=== PATIENT | female | born 1980 | race Caucasian/White ===

== ENCOUNTER 2017-10-12 09:43 | Emergency (ER) | payer SELFPAY ==
[2017-10-12 09:51] VITALS: BP 139/81; PULSE 119; RESP 18; TEMP 100.4; O2SAT 97
[2017-10-12 09:52] VITALS: BMI 24.9
--- NOTE | 2017-10-12 10:53 | ED PDOC ---
HPI: CCC, URI, Sore Throat Time Seen by Provider: 10/12/17 09:57 Chief Complaint (Nursing): Flu-like Symptoms Chief Complaint (Provider): Flu like symptoms History Per: Patient Additional Complaint(s): 37 yo female, no PMH, presents to ED with complaints of sudden onset of nasal congestion, cough, nausea and tactile fever last night. Pt took 2 aspirin at 0830 this am for relief of body aches and fever. No flu shot this year Past Medical History Reviewed: Nursing Documentation, Vital Signs Vital Signs: Last Vital Signs Temp 100.4 F H 10/12/17 11:10 Pulse 119 H 10/12/17 09:50 Resp 18 10/12/17 09:50 BP 139/81 10/12/17 09:50 Pulse Ox 97 10/12/17 10:52 - Medical History PMH: Bronchitis - Family History Family History: States: No Known Family Hx - Living Arrangements Living Arrangements: With Family - Social History Current smoker - smoking cessation education provided: No Alcohol: Social Drugs: Denies - Home Medications Home Medications: Ambulatory Orders Medication Instructions Recorded Cephalexin [Keflex] 500 mg PO QID #48 cap 05/03/14 Ibuprofen [Motrin] 600 mg PO Q6 #20 tab 10/12/17 Promethazine HCl/Codeine 5 ml PO HS #80 ml 10/12/17 [Prometh-Codein 6.25-10 mg/5 ml] - Allergies Allergies/Adverse Reactions: Allergies Allergy/AdvReac Type Severity Reaction Status Date / Time No Known Allergies Allergy Verified 05/03/14 15:55 Review of Systems ROS Statement: Except As Marked, All Systems Reviewed And Found Negative Constitutional: Positive for: Fever ENT: Positive for: Nose Congestion Respiratory: Positive for: Cough Physical Exam - Reviewed Nursing Documentation Reviewed: Yes Vital Signs Reviewed: Yes - Physical Exam Appears: Positive for: Well, Non-toxic, No Acute Distress Head Exam: Positive for: ATRAUMATIC, NORMAL INSPECTION, NORMOCEPHALIC Skin: Positive for: Normal Color, Warm, DRY Eye Exam: Positive for: EOMI, Normal appearance, PERRL ENT: Positive for: Normal ENT Inspection Neck: Positive for: Normal, Painless ROM Cardiovascular/Chest: Positive for: Regular Rate, Rhythm Respiratory: Positive for: CNT, Normal Breath Sounds Gastrointestinal/Abdominal: Positive for: Normal Exam, Bowel Sounds, Soft Back: Positive for: Normal Inspection Extremity: Positive for: Normal ROM Neurologic/Psych: Positive for: Alert, Oriented - Laboratory Results Result Diagrams: 10/12/17 11:10 10/12/17 11:10 - ECG O2 Sat by Pulse Oximetry: 97 Medical Decision Making Medical Decision Making: Pt medicated with Tylenol and Zofran Diagnostics ordered CXR: NAD, as read by [facility] Labs resulted and reviewed with Pt who demonstrated full understanding and reports feeling improved on r-eval Temp 99.3 F Disposition - Clinical Impression Clinical Impression: Influenza-like symptoms, Anemia - Disposition Disposition: Routine/Home Disposition Time: 11:00 Condition: STABLE Prescriptions: Ibuprofen [Motrin] 600 mg PO Q6 #20 tab Promethazine HCl/Codeine [Prometh-Codein 6.25-10 mg/5 ml] 5 ml PO HS #80 ml Instructions: Viral Syndrome (ED) Forms: [employer] (Thai)
--- NOTE | 2017-10-12 11:30 | RAD ---
HISTORY: fever and cough COMPARISON: 08/29/2012 TECHNIQUE: Chest PA and lateral FINDINGS: LUNGS: No active pulmonary disease. PLEURA: No significant pleural effusion identified. No pneumothorax apparent. CARDIOVASCULAR: Normal. OSSEOUS STRUCTURES: No significant abnormalities. VISUALIZED UPPER ABDOMEN: Normal. OTHER FINDINGS: None. IMPRESSION: No active disease.
[2017-10-12 11:32] LABS: VENOUS BLOOD GAS BASE EXCESS 3.4 mmol/L (0.0-2.0); VENOUS BLOOD GAS PCO2 44 mmHg (40-60); VENOUS BLOOD GAS PO2 17 mm/Hg (30-55); VENOUS BLOOD PH 7.42 (7.32-7.43)
[2017-10-12 11:38] LABS: ALB/GLOB RATIO 1.3 (1.0-2.1); ALBUMIN 4.5 g/dL (3.5-5.0); ALT/SGPT 30 U/L (9-52); AST/SGOT 30 U/L (14-36); BLOOD UREA NITROGEN 10 mg/dl (7-17); CALCIUM 8.7 mg/dL (8.4-10.2); GFR AFRICAN-AMERICAN > 60; GFR NON-AFRICAN AMERICAN > 60
[2017-10-12 11:42] LABS: BASO % 0.3 % (0.0-2.0); EOS # 0.1 K/uL (0.0-0.7); EOS % 0.6 % (0.0-4.0); HEMOGLOBIN 9.3 g/dL (12.0-16.0); LYMPH # 0.6 K/uL (1.0-4.3); LYMPH % 7.1 % (20.0-40.0); MEAN CELL VOLUME 69.1 fl (81.0-99.0); MEAN CORPUSCULAR HEMOGLOBIN 20.9 pg (27.0-31.0); MEAN CORPUSCULAR HGB CONC 30.2 g/dL (33.0-37.0); MEAN PLATELET VOLUME 7.6 fl (7.2-11.7); MONO # 0.5 K/uL (0.0-0.8); NEUT # 7.7 K/uL (1.8-7.0); PLATELET COUNT 344 K/uL (130-400); RBC 4.44 Mil/uL (3.80-5.20); RED CELL DISTRIBUTION WIDTH 16.9 % (11.5-14.5); WHITE BLOOD COUNT 8.9 K/uL (4.8-10.8)
[2017-10-12 12:53] LABS: LYMPHOCYTE 6 % (20-50); MONOCYTE 6 % (0-10); NEUTROPHIL 88 % (42-75); PLATELET ESTIMATE NORMAL (NORMAL); TOTAL CELLS COUNTED 100
[2017-10-12 13:45] LABS: SQUAMOUS EPITHIAL 6 /hpf (0-5); URINE BILIRUBIN NEGATIVE (NEGATIVE); URINE BLOOD LARGE (NEGATIVE); URINE CLARITY TURBID (Clear); URINE COLOR RED (YELLOW); URINE GLUCOSE (UA) NEG (Normal); URINE LEUKOCYTE ESTERASE SMALL Leu/uL (Negative); URINE NITRATE NEGATIVE (NEGATIVE); URINE PROTEIN 100 mg/dL (NEGATIVE); URINE UROBILINOGEN 0.2-1.0 mg/dL (0.2-1.0)
== END 2017-10-12 13:08 | disposition home or self-care (01) ==
LOC: H.ER 09:43
DX: J11.1 Influenza due to unidentified influenza virus with other respiratory manifestations (principal); D64.9 Anemia, unspecified

== ENCOUNTER 2017-11-21 19:59 | Emergency (ER) | payer SELFPAY ==
[2017-11-21 19:59] VITALS: BMI 24.9
[2017-11-21 20:24] VITALS: BP 143/81; PULSE 83; RESP 16; TEMP 97.8; O2SAT 99
--- NOTE | 2017-11-21 21:20 | ED PDOC ---
Lower Extremity Pain/Injury Time Seen by Provider: 11/21/17 20:30 Chief Complaint (Nursing): Lower Extremity Problem/Injury Chief Complaint (Provider): Lower Extremity Problem/Injury History Per: Patient History/Exam Limitations: no limitations Additional Complaint(s): 37 year old female presents to the emergency department with a complaint of a left great toe pain with swelling after she hit it against something prior to arrival. Denies fever, chills, numbness, or any further injuries or complaints. Past Medical History Reviewed: Historical Data, Nursing Documentation, Vital Signs Vital Signs: Last Vital Signs Temp 97.8 F 11/21/17 20:21 Pulse 83 11/21/17 20:21 Resp 16 11/21/17 20:21 BP 143/81 11/21/17 20:21 Pulse Ox 99 11/21/17 20:21 - Medical History PMH: Bronchitis - Surgical History Surgical History: No Surg Hx - Family History Family History: States: Unknown Family Hx - Home Medications Home Medications: Ambulatory Orders Medication Instructions Recorded Cephalexin [Keflex] 500 mg PO QID #48 cap 05/03/14 Ibuprofen [Motrin] 600 mg PO Q6 #20 tab 10/12/17 Promethazine HCl/Codeine 5 ml PO HS #80 ml 10/12/17 [Prometh-Codein 6.25-10 mg/5 ml] Cephalexin [Keflex] 500 mg PO Q6 #28 capsule 11/21/17 Naproxen 500 mg PO BID PRN #20 tablet 11/21/17 Sulfamethoxazole/Trimethoprim 2 tab PO BID #28 tab 11/21/17 [Bactrim DS 800 mg-160 mg] - Allergies Allergies/Adverse Reactions: Allergies Allergy/AdvReac Type Severity Reaction Status Date / Time No Known Allergies Allergy Verified 05/03/14 15:55 Review of Systems ROS Statement: Except As Marked, All Systems Reviewed And Found Negative (As per HPI, otherwise negative) Constitutional: Negative for: Fever, Chills, Other (injuries) Neurological: Negative for: Numbness Physical Exam - Reviewed Nursing Documentation Reviewed: Yes Vital Signs Reviewed: Yes - Physical Exam Appears: Positive for: No Acute Distress Head Exam: Positive for: NORMAL INSPECTION Skin: Positive for: Normal Color, Warm, Dry Pulses-Dorsalis Pedis (L): 2+ Extremity: Positive for: Normal ROM, Tenderness (Tenderness and swelling to the left great toe nail margin with redness), Capillary Refill (<2 sec refill. Sensation intact. ), Swelling, Other (distal sensation intact). Negative for: Deformity Neurologic/Psych: Positive for: Alert, retail advertising executive II-XII, Oriented (x3). Negative for : Motor/Sensory Deficits - ECG O2 Sat by Pulse Oximetry: 99 (RA) Pulse Ox Interpretation: Normal Medical Decision Making Medical Decision Making: Time: 2039 Initial impression: Infected ingrown toe nail Impression : Ingrown toenail Initial plan: -XR L foot -Keflex PO -Bactrim DS PO -Naprosyn PO XR L foot : (-) fracture, (-) dislocation, as read by PA XR results d/w the patient. Dx of ingrown toenail with infection d/w the patient. Prior to procedure "time out" was called in order to confirm the correct patient and procedure. Through aseptic technique, local anesthesia was administered to L great toe, elevation of nail margin performed with partial excision of and removal of the nail margin was performed by DIONNE which produced purulent material. Wound was cleaned, bacitracin applied. Clean dressing was applied. Advised to follow up with podiatry clinic in 1-2 days without fail. Advised to take medication as prescribed. Return to the emergency room at any time for any new or worsening symptoms. Patient states she fully agrees with and understands discharge instructions. States that she agrees with the plan and disposition. Verbalized and repeated discharge instructions and plan. I have given the patient opportunity to ask any additional questions. Scribe Attestation: Documented by Kassi Salcido, acting as a scribe for Tracie Rodriguez PA-C Provider Scribe Attestation: All medical record entries made by the Scribe were at my direction and personally dictated by me. I have reviewed the chart and agree that the record accurately reflects my personal performance of the history, physical exam, medical decision making, and the department course for this patient. I have also personally directed, reviewed, and agree with the discharge instructions and disposition. Disposition - Clinical Impression Clinical Impression: Ingrown left greater toenail - Patient ED Disposition Is Patient to be Admitted: No Counseled Patient/Family Regarding: Studies Performed, Diagnosis, Need For Followup, Rx Given - Disposition Referrals: Podiatry Clinic [Outside] Disposition: Routine/Home Disposition Time: 22:45 Condition: STABLE Additional Instructions: Thank you for letting us take care of you today. You were treated for ingrown toenail. The emergency medical care you received today was directed at your acute symptoms. If you were prescribed any medication, please fill it and take as directed. It may take several days for your symptoms to resolve. Return to the Emergency Department if your symptoms worsen, do not improve, or if you have any other problems. Please contact one of the physicians/clinics you have been referred to that are listed on the Patient Visit Information form that is included in your discharge packet. Bring any paperwork you were given at discharge with you along with any medications you are taking to your follow up visit. Our treatment cannot replace ongoing medical care by a primary care provider (PCP) outside of the emergency department. Thank you for allowing the [facility] team to be part of your care today. If you had an X-Ray : A Radiologist will review the ED reading if any change in treatment is needed we will contact you. Prescriptions: Cephalexin [Keflex] 500 mg PO Q6 #28 capsule Naproxen 500 mg PO BID PRN #20 tablet PRN Reason: Pain, Moderate (4-7) Sulfamethoxazole/Trimethoprim [Bactrim DS 800 mg-160 mg] 2 tab PO BID #28 tab Instructions: Ingrown Toenail, Ingrown Toenail Removal Forms: [employer] (Sinhala), [facility] ED School/Work Excuse Print Language: CROATIAN - PA / VENEER GLUE SPREADER / Resident Statement MD/DO has reviewed & agrees with the documentation as recorded.
[2017-11-21] MEDS ORDERED: Naproxen 500 MG TAB PO STA (21:41)
[2017-11-21] MEDS ORDERED: Tmp-Smz 800 mg-160 mg DS Tab PO STA (21:41)
[2017-11-21] MEDS ORDERED: Tmp-Smz 800 mg-160 mg DS Tab ONE (22:00)
[2017-11-21] MEDS ORDERED: Naproxen 500 MG TAB PO ONE (22:00)
--- NOTE | 2017-11-22 09:56 | RAD ---
PROCEDURE: Radiographs of the left great toe. TECHNIQUE:: Three views of the left foot performed. COMPARISON: None. FINDINGS: BONES: No evidence acute displaced fracture nor dislocation. Tiny plantar surface calcaneal enthesophyte JOINTS: Normal. SOFT TISSUES: Normal. OTHER FINDINGS: None. IMPRESSION: No evidence of acute displaced fracture nor dislocation.
== END 2017-11-21 23:11 | disposition home or self-care (01) ==
LOC: H.ER 19:59
DX: L60.0 Ingrowing nail (principal)